=== PATIENT | female | born 1985 | race Caucasian/White ===

== ENCOUNTER 2017-12-17 11:52 | Emergency (ER) | END 2017-12-17 14:56 | disposition home or self-care (01) ==

== ENCOUNTER 2018-07-14 02:28 | Emergency (ER) | payer MEDICARE, OTHER ==
[~2018-07-14] VITALS: Ht 160 cm; Wt 89.1 kg
[~2018-07-14 02:28] MED LIST: AZIT250T PO; BEN50 PO; FAMO20TA18 PO; GUAI-47 PO; IBUP-1542 PO
[2018-07-14 02:30] VITALS: Ht 160 cm; Wt 89.1 kg
[2018-07-14] MEDS ORDERED: LIDOCAINE 1% (MDV) 20 ML INJ SC ONE (06:00)
[2018-07-14] MEDS ORDERED: LIDOCAINE 2% VISC 15 ML CUP PO ONE (06:00)
[2018-07-14] MEDS ORDERED: NPH10OT LEFT EAR (06:40)
[2018-07-14 06:57] VITALS: BP 134/79; PULSE 79; RESP 18
[2018-07-14] MEDS ORDERED: IBUPROFEN 800 MG TAB PO ONE (07:00)
--- NOTE | 2018-07-15 21:36 | ERD ---
ER Documentation Chief Complaint Chief Complaint BIBRA from home,bug in left ear per patient verbatim HPI 33-year-old female presents with complaint of bug in her left ear. States that she noticed the bug 10 AM today. Patient states that her ear hurts. She denies any hearing loss, discharge from the ear. ROS All systems reviewed and are negative except as per history of present illness. Medications Home Meds Active Scripts Neomycin/Polymyxin/Hydrocort* (Cortisporin* Otic) 10 Ml Susp, 4 DROP LEFT EAR QID for infection for 7 Days, EA Prov:JUAN C ULLOA 07/14/18 Famotidine* (Famotidine*) 20 Mg Tablet, 20 MG PO BID, #30 TAB Prov:JV HILLIARD DO 12/17/17 Diphenhydramine Hcl* (Benadryl*) 50 Mg Cap, 50 MG PO Q6H PRN for ITCHING/RASH, #30 CAP Prov:JV HILLIARD DO 12/17/17 Ibuprofen* (Motrin*) 600 Mg Tab, 600 MG PO Q6, #30 TAB Prov:JULIO C MENDEZ PA-C 08/08/15 Diphenhydramine Hcl* (Benadryl*) 50 Mg Cap, 50 MG PO Q6 PRN for ALLERGIC REACTION, #30 CAP Prov:SHIRIN ELIZONDO NP 05/11/15 Guaifenesin-Dextromethorphan* (Mucinex* DM) 600-30 Mg Tabsr, 1 TAB PO Q12 for 7 Days, TAB Prov:PATRICE MAJOR MD 09/21/14 Ibuprofen* (Motrin*) 600 Mg Tab, 600 MG PO Q6, #14 TAB Prov:PATRICE MAJOR MD 09/21/14 Azithromycin* (Zithromax*) 250 Mg Tablet, 250 MG PO .ZPACK DIRECTED, #6 TAB TAKE 500 MG (2 TABS) THE FIRST DAY THEN 250 MG (1 TAB) DAYS 2-5 Prov:PATRICE MAJOR MD 09/21/14 Allergies Allergies: Coded Allergies: acetaminophen (Verified Allergy, Intermediate, ANGIOEDEMA, 12/17/17) PMhx/Soc History of Surgery: No Anesthesia Reaction: No Hx Neurological Disorder: No Hx Respiratory Disorders: No Hx Cardiac Disorders: No Hx Psychiatric Problems: No Hx Miscellaneous Medical Probl: Yes (hypothyroidism,dm) Hx Alcohol Use: No Hx Substance Use: No Hx Tobacco Use: No Smoking Status: Never smoker FmHx Family History: No diabetes, No coronary disease, No other Physical Exam Vitals Vital Signs Date Temp Pulse Resp B/P (MAP) Pulse Ox O2 O2 Flow FiO2 Time Delivery Rate 07/14/18 79 18 134/79 99 Room Air 06:57 (97) 07/14/18 98.5 98 18 113/92 95 02:30 (99) Physical Exam Const: No acute distress Head: Atraumatic Eyes: Normal Conjunctiva ENT: Normal External Ears, Nose and Mouth. There is a bug noted in the patient's left ear canal. But is not moving. There is no bleeding, edema, or erythema of the ear canal. Neck: Full range of motion. No meningismus. Resp: Clear to auscultation bilaterally Cardio: Regular rate and rhythm, no murmurs Abd: Soft, non tender, non distended. Normal bowel sounds Skin: No petechiae or rashes Back: No midline or flank tenderness Ext: No cyanosis, or edema Neur: Awake and alert Psych: Normal Mood and Affect Results 24 hrs Current Medications Medications Dose Sig/Terrance Start Time Status Last (Trade) Ordered Route PRN Stop Time Admin Dose Reason Admin Lidocaine 15 ml ONCE ONCE 07/14/18 DC (Xylocaine PO 06:00 (Viscous)) 07/14/18 06:01 Lidocaine 20 ml ONCE ONCE 07/14/18 DC (Xylocaine SC 06:00 1% (Mdv) 20 07/14/18 06:01 ml) Ibuprofen 800 mg ONCE ONCE 07/14/18 DC 07/14/18 (Motrin) PO 07:00 06:52 07/14/18 07:00 Procedures/MDM 1% lidocaine was placed in the patient's left ear canal. Left ear canal was then irrigated to try and remove the bug but it did not come out. Alligator forceps were then used and most of the bug was removed. Patient's ear was irrigated again and the rest of the bug came out. The time of discharge there were no remnants of any foreign bodies in patient's left ear. In addition, patient's nutrition was intact without any signs of trauma or infection. Patient's ear canals were not erythematous or edematous as well. Patient was given Cortisporin drops medication for pain. Low suspicion for TM rupture, ear infection, or any other emergent condition. Patient discharged with strict ER precautions. Patient advised to follow up with PMD. All questions answered at discharge. Departure Diagnosis: Primary Impression: Foreign body in ear Encounter type: initial encounter Laterality: left Qualified Codes: T16.2XXA - Foreign body in left ear, initial encounter Condition: Stable Patient Instructions: Foreign Body, Ear Canal (Removed) Referrals: [facility] YOU HAVE RECEIVED A MEDICAL SCREENING EXAM AND THE RESULTS INDICATE THAT YOU DO NOT HAVE A CONDITION THAT REQUIRES URGENT TREATMENT IN THE EMERGENCY DEPARTMENT. FURTHER EVALUATION AND TREATMENT OF YOUR CONDITION CAN WAIT UNTIL YOU ARE SEEN IN YOUR DOCTORS OFFICE WITHIN THE NEXT 1-2 DAYS. IT IS YOUR RESPONSIBILITY TO MAKE AN APPOINTMENT FOR FOLOW-UP CARE. IF YOU HAVE A PRIMARY DOCTOR --you should call your primary doctor and schedule an appointment IF YOU DO NOT HAVE A PRIMARY DOCTOR YOU CAN CALL OUR PHYSICIAN REFERRAL HOTLINE AT IF YOU CAN NOT AFFORD TO SEE A PHYSICIAN YOU CAN CHOSE FROM THE FOLLOWING [facility] [address] [facility]. [facility] [address] [facility] [address] [facility]. [facility] [address] [facility]. [facility] [address] [facility]. [facility]. [address] Additional Instructions: FOLLOW UP WITH YOUR PRIMARY CARE PHYSICIAN TOMORROW.Return to this facility if you are not improving as expected. JUAN C ULLOA Jul 15, 2018 21:36
== END 2018-07-14 06:58 | disposition home or self-care (01) ==
LOC: FTE 02:28
DX: T16.2XXA Foreign body in left ear, initial encounter (principal); E11.9 Type 2 diabetes mellitus without complications; E03.9 Hypothyroidism, unspecified; X58.XXXA Exposure to other specified factors, initial encounter; Y92.9 Unspecified place or not applicable